=== PATIENT | female | born 1955 | race Caucasian/White ===

== ENCOUNTER 2018-03-16 06:05 | Inpatient (IN) | payer OTHER ==
[~2018-03-16] VITALS: Ht 162.6 cm; Wt 65.3 kg
--- NOTE | ~2018-03-16 | EKG ---
[place] [address] [facility] [place] [address] ELECTROCARDIOGRAM REPORT Name: DENISE PULIDO [id number] Admission: 03/16/18 Attend Phys: Discharge: Date of : 59 Report #: [id number] THIS REPORT FOR: //name// [facility] ED Test Date: 2018-03-16 Test Time: 06:50:13 Pat Name: DENISE PULIDO Department: Room: Gender: F [employer]: : 1955 Requested By: Everett Patel Order Number: [id number] MD: Bryce Smith Measurements Intervals [place] Rate: 93 P: 70 GA: 127 QRS: 52 QRSD: 92 T: 52 QT: 358 QTc: 446 Interpretive Statements Sinus rhythm Nonspecific ST segment abnormality No previous ECG available for comparison Electronically Signed On 03-16-2018 8:51:11 CDT by Bryce Smith [email or web address] <ELECTRONICALLY SIGNED> By: Bryce Smith MD, [facility] 03/16/18 0851 0650 0650 Bryce Smith MD, FACC /EPI
--- NOTE | ~2018-03-16 | PATH ---
[facility] [place] [address] PATHOLOGY RPT PROCEDURE Name: MARIA DEL ROSARIO PULIDO Room #: 221-P [facility] IN .R.#: [id number] Admission: 03/16/18 Date of : 59 Discharge: 03/20/18 Report #: [id number] Path Case #: [id number] [facility] Accession Number: [id number] . 01 Material submitted: . LIVER . 01 Clinical history: . Abdominal pain, liver mass . 02 Diagnosis: Liver biopsy: - Moderately poorly differentiated adenocarcinoma. See comment. (SHA:alexia; 03/22/2018) QMS/03/22/2018 . 02 Comment: This case was also reviewed by Dr. Jammie Gustafson. This case was also discussed with Dr. Dustin Gregg and Dr. Maddie Ramirez on 03/22/2018 at 2:00 p.m. . Immunoperoxidase stains reveal TTF-1 positive, CK7 positive, CK20 positive, CK19 positive, and AE1/AE3 positive. . Immunoperoxidase stains for mammaglobin, hepatocyte, DC, synaptophysin, chromogranin, p40, and ER are negative. The mucin stain is weakly positive. Based on the immunoglobulin stain, the primaries are lung and pancreaticobiliary . (SHA:alexia; 03/22/2018) . 02 Electronically signed: . Francis Lunsford MD, Pathologist NPI- [id number] . 01 Gross description: . The specimen is received in formalin, labeled "Maria Del Rosario Pulido, liver" and consists of 2 delicate needle cores of navarro-brown tissue measuring 2.0 cm and 1.7 cm in length and 0.1 cm each in diameter. They are entirely submitted in A1. (SDY; 03/18/2018) SYU/SYU . 02 Pathologist provided ICD-10: C22.9 . 02 CPT . [address] [address] PATHOLOGY RPT PROCEDURE Name: MARIA DEL ROSARIO PULIDO Room #: 221-P [facility] IN [facility].#: [id number] Admission: 03/16/18 Date of : 59 Discharge: 03/20/18 Report #: [id number] Path Case #: [id number] Specimen Comment: A courtesy copy of this report has been sent to Specimen Comment: [phone]. Specimen Comment: Report sent to Performed at: [address], [place], [place] [id number] MD Benson Landry MD Phone: [phone] Performed at: [address] [id number] MD Daly Wilson MD Phone: [phone]
--- NOTE | ~2018-03-16 | HC ---
[facility] [place] [address] CONSULTATION Name: DENISE PULIDO Room #: 221-P [facility] IN M.R.#: [id number] Admission: 03/16/18 Attend Phys: Dustin Gregg MD Discharge: Date of : 59 Report #: [id number] THIS REPORT FOR: //name// CC: DONNIE physician/PCP Dustin Gregg DATE OF SERVICE: 03/17/2018 REASON FOR CONSULTATION: Leukocytosis. HISTORY OF PRESENT ILLNESS: The patient is a 62-year-old, underlying COPD, active smoker, who presents with a 4-day history of right-sided abdominal pain, then developing nausea, vomiting and inability to keep any food or liquids down. Denies any fever, chills or sweats. Pain is very sharp involving the right upper lateral abdomen and side. Pain medication does help some. Pain is worse when she moves. It does not change after eating or with defecation. She has never had this type of discomfort before. Reports no trauma. After admission through the Emergency Room, she was found on imaging studies to have multiple lesions in her liver as well as a large adrenal mass. This is being further evaluated. She is also noted to have a white count of 23,000. REVIEW OF SYSTEMS: GENERAL: Denies any headache, change in mental status, seizure disorder, unilateral weakness. CONSTITUTIONAL: As noted above with no weight loss. LYMPH: Negative. HEMATOLOGIC: Negative. ENDOCRINE: Negative. PULMONARY: COPD, chronic smoker. No significant cough or sputum production. No hemoptysis. No pleuritic chest pain. Does have some dyspnea on exertion. CARDIOVASCULAR: Negative. GASTROINTESTINAL: As above. GENITOURINARY: Negative with no hematuria, back or flank pain. No vaginal discharge. JOINTS: Negative. SKIN: Negative. HEMATOLOGIC: Negative. ALLERGY: Negative. ALLERGIES: None known. MEDICATIONS: No medications prior to her admission. PAST MEDICAL HISTORY: Herniated disk to her neck, COPD, right pneumothorax. [facility] [address] [place] [address] CONSULTATION Name: DENISE PULIDO Room #: 221-P [facility] IN [facility]#: [id number] Admission: 03/16/18 Attend Phys: Dustin Gregg MD Discharge: Date of : 59 Report #: [id number] FAMILY HISTORY: Noncontributory. SOCIAL HISTORY: She is a smoker of cigarettes. No significant alcohol intake. No tuberculosis exposure. No HIV risk factors. She has 2 grown children. Currently unemployed. PHYSICAL EXAMINATION: VITAL SIGNS: Afebrile and hemodynamically stable. GENERAL: She is alert and cooperative and pleasant, in no acute distress, lying in bed, appeared her stated age. HEENT: Grossly hearing was normal. Dentition in fair repair. No oral lesions or mucositis. Eyes without conjunctival injection or scleral icterus. NECK: Supple. No thyromegaly, mass, JVD. No peripheral adenopathy palpable. SKIN: Without lesion. LUNGS: Decreased breath sounds bilaterally. HEART: Regular, without murmur, gallop or rub. Chest wall unremarkable. ABDOMEN: Mild distention with tenderness in the right upper quadrant. There was fullness in this region. Liver edge was palpable on deep inspiration. No CVA tenderness. No other appreciable masses. GENITAL AND RECTAL: Not performed. EXTREMITIES: Without edema or cyanosis. NEUROLOGIC: Cranial nerves intact. Strength in upper and lower extremities normal. Deep tendon reflexes normal, sensation normal in upper and lower extremities. Mood normal. LABORATORY STUDIES: Creatinine 0.8. Sodium 133, potassium 3.6, bicarbonate 25, lipase 43, bilirubin 0.7, alkaline phosphatase 311, ALT 29, AST 183, lactate 2.3. Hemoglobin 11, WBC 23.5, platelet count 668,000, differential unremarkable. Urinalysis unremarkable with no hematuria. Chest x-ray is clear. CT scan of the abdomen showed multiple hepatic masses along with a large adrenal mass. She also had thickening along the right ureter and a mass in the bladder. IMPRESSION: A 62-year-old with: 1. Leukocytosis. She has wildly metastatic lesions involving the liver and the adrenal gland. Also, has a lesion in the right ureter and bladder. Question now is whether this is all related. I do suspect this process is what is stimulating her leukocytosis. At this point, it does appear most likely malignancy. This, however, will need to be further delineated after biopsy. Other granulomatous process could present in this fashion. The patient has had no fever, chills or sweats to support this, however. 2. Tobacco use. 3. Anemia. 4. Thrombocytosis. 5. Mild hepatitis. [address] [address] CONSULTATION Name: DENISE PULIDO Room #: 221-P [facility] IN M.R.#: [id number] Admission: 03/16/18 Attend Phys: Dustin Gregg MD Discharge: Date of : 59 Report #: [id number] RECOMMENDATION: We will hold antibiotics at this point in time. We will check HIV status, TB screen, histoplasma antibody and await tissue cultures along with pathology report from needle biopsy of the liver lesion. <ELECTRONICALLY SIGNED> By: Jeremías Washington MD 03/18/18 0916 1139 2046 Jeremías Washington MD /nt
--- NOTE | ~2018-03-16 | HC ---
[facility] [place] [address] CONSULTATION Name: DENISE PULIDO Room #: 428-P [facility] IN M.R.#: [id number] Admission: 03/16/18 Attend Phys: Dustin Gregg MD Discharge: Date of : 59 Report #: [id number] THIS REPORT FOR: //name// CC: DONNIE physician/PCP Dustin Gregg DATE OF SERVICE: 03/16/2018 HISTORY OF PRESENT ILLNESS: This patient is seen in consultation regarding a CT scan performed in the Emergency Room showing masses within the liver and enlargement of the right adrenal gland. She presented to the ER with complaints of nausea and vomiting for several days along with right upper quadrant pain. She has no known prior history of malignancy. She has not had any recent testing done nor seen physicians for approximately the last 6 years as she has been uninsured. She states that earlier colonoscopy and mammography 6 years ago were negative. She is an ongoing cigarette smoker, but denies any recent increased cough or hemoptysis. She has chronic GERD symptoms. She denies any recent change in bowel or bladder habits. PAST MEDICAL HISTORY: Significant for herniated disks. MEDICATIONS: As listed on the MFR. ALLERGIES: None known. SOCIAL HISTORY: Significant for one half pack of cigarettes per day x 40 years. She denies illicit drug use. FAMILY HISTORY: Noncontributory. REVIEW OF SYSTEMS: Negative except in the history of the present illness. PHYSICAL EXAMINATION: GENERAL: Shows her to be alert. Her boyfriend and son are present. She appears older than her stated age and smells of tobacco/cigarette smoke. HEENT: Normocephalic. Her mouth is clear. NECK: Supple. CHEST: Clear. CARDIOVASCULAR: Normal S1, S2. ABDOMEN: Shows liver to be 4 fingerbreadths below the right costal margin. There is no evidence of ascites or other masses. EXTREMITIES: No clubbing, cyanosis, edema. NEUROLOGIC: No focal localized signs. PSYCHIATRIC: Not agitated or confused. [facility] [address] [place] [address] CONSULTATION Name: DENISE PULIDO Room #: 428-[facility] IN ..#: [id number] Admission: 03/16/18 Attend Phys: Dustin Gregg MD Discharge: Date of : 59 Report #: [id number] LYMPHATICS: No palpable supraclavicular or axillary lymphadenopathy. LABORATORY DATA: Reviewed and showed leukocytosis along with liver function abnormalities. CT scan shows masses within both lobes of her liver and a 3 x 6 x 7 cm right adrenal mass. ASSESSMENT: Suspected stage 4 malignancy. PLAN: The patient needs to undergo a biopsy to make a tissue diagnosis. We reviewed and discussed and she understands and agrees and is anxious to proceed as quickly as possible. I would recommend that Radiology see her for an IR directed needle biopsy of either the adrenal mass or one of the liver metastases. Assuming she is stable, she can be discharged following the procedure while we wait for her pathology results to be known. Social work needs to see her also, so she can apply for Medicaid benefits. Thanks for allowing me to see her with you in consultation and asking me to participate in her care. By: [id number] Maddie Polanco MD /nt
[~2018-03-16 06:05] MED LIST: ATIVAN1 MG PO; NOHOMEMEDICATIONS
[2018-03-16 06:06] VITALS: BP 145/55
[2018-03-16 06:49] LABS: HEMATOCRIT 33.6 % (37.0-47.0); HEMOGLOBIN 11.1 gm/dL (12.0-15.0); MCH 26.3 pg (26.0-34.0); MCHC 32.9 g/dL (28.0-37.0); MCV 79.9 fL (80.0-100.0); PLATELET COUNT 668 thou/uL (150-400); RBC 4.21 mil/uL (4.20-5.00); RDW 14.3 % (10.5-14.5); WBC 23.5 thou/uL (4.0-11.0)
[2018-03-16 06:58] LABS: CALCIUM 8.9 mg/dL (8.5-10.1); CREATININE 0.8 mg/dL (0.6-1.0); POTASSIUM 3.6 mmol/L (3.5-5.1)
[2018-03-16 07:04] LABS: ALBUMIN 2.7 g/dL (3.4-5.0); TOTAL BILIRUBIN 0.7 mg/dL (<0.1-1.0)
[2018-03-16 07:54] LABS: ABSOLUTE NEUTROPHILS 19.3 thou/uL (1.4-8.2)
[2018-03-16 07:55] LABS: ANISOCYTOSIS 1+
[2018-03-16 08:57] LABS: URINE BILIRUBIN NEGATIVE (Negative); URINE BLOOD NEGATIVE (Negative); URINE CLARITY CLEAR; URINE COLOR YELLOW; URINE GLUCOSE-RANDOM* NEGATIVE (Negative); URINE KETONES NEGATIVE (Negative); URINE LEUKOCYTES-REFLEX NEGATIVE (Negative); URINE NITRITE-REFLEX NEGATIVE (Negative); URINE PROTEIN (DIPSTICK) NEGATIVE (Negative); URINE UROBILINOGEN 0.2 E.U./dl (0.2-1.0)
[2018-03-16 10:20] LABS: INR 1.2; PROTIME 11.9 Seconds (9.3-11.4)
[2018-03-16 11:14] VITALS: BP 145/55
[2018-03-16 13:25] VITALS: BP 143/78
[2018-03-16 13:30] VITALS: BP 135/49
[2018-03-16 14:16] LABS: TSH 1.989 uIU/mL (0.358-3.740)
[2018-03-16 19:55] VITALS: BP 142/55
[2018-03-17] VITALS (7 sets, daily range): BP systolic 128–165; BP diastolic 50–81
[2018-03-17 05:57] LABS: HEMATOCRIT 30.8 % (37.0-47.0); HEMOGLOBIN 9.8 gm/dL (12.0-15.0); MCH 25.5 pg (26.0-34.0); MCHC 31.7 g/dL (28.0-37.0); MCV 80.4 fL (80.0-100.0); RBC 3.83 mil/uL (4.20-5.00); RDW 14.2 % (10.5-14.5); WBC 23.8 thou/uL (4.0-11.0)
[2018-03-17 06:06] LABS: CALCIUM 8.1 mg/dL (8.5-10.1); CREATININE 0.8 mg/dL (0.6-1.0); MAGNESIUM 1.7 mg/dL (1.8-2.4); POTASSIUM 3.7 mmol/L (3.5-5.1)
[2018-03-17 13:46] LABS: APTT 33.8 Seconds (24.5-32.8); INR 1.3; PROTIME 13.4 Seconds (9.3-11.4)
[2018-03-17 23:06] LABS: HIV ANTIBODY Non Reactive (Non Reactive)
[2018-03-18 05:20] VITALS: BP 162/61
[2018-03-18 07:26] LABS: HEMATOCRIT 28.2 % (37.0-47.0); HEMOGLOBIN 9.3 gm/dL (12.0-15.0); MCH 26.1 pg (26.0-34.0); MCHC 32.9 g/dL (28.0-37.0); MCV 79.3 fL (80.0-100.0); RBC 3.56 mil/uL (4.20-5.00); RDW 14.2 % (10.5-14.5); WBC 23.5 thou/uL (4.0-11.0)
[2018-03-18 07:37] LABS: CALCIUM 7.6 mg/dL (8.5-10.1); CREATININE 0.7 mg/dL (0.6-1.0); MAGNESIUM 1.6 mg/dL (1.8-2.4); POTASSIUM 3.4 mmol/L (3.5-5.1)
[2018-03-18 07:54] VITALS: BP 140/68
[2018-03-18 17:42] VITALS: BP 140/68
[2018-03-18 20:22] VITALS: BP 144/73
[2018-03-19 08:15] VITALS: BP 147/65
[2018-03-19 09:47] LABS: HEMATOCRIT 29.1 % (37.0-47.0); HEMOGLOBIN 9.6 gm/dL (12.0-15.0); MCH 26.4 pg (26.0-34.0); MCV 79.8 fL (80.0-100.0); RBC 3.64 mil/uL (4.20-5.00); RDW 14.4 % (10.5-14.5); WBC 19.5 thou/uL (4.0-11.0)
[2018-03-19 10:29] LABS: CALCIUM 8.1 mg/dL (8.5-10.1); CREATININE 0.6 mg/dL (0.6-1.0); MAGNESIUM 1.8 mg/dL (1.8-2.4)
[2018-03-19 10:42] LABS: POTASSIUM 2.9 mmol/L (3.5-5.1)
[2018-03-19 14:26] LABS: CALCIUM 7.8 mg/dL (8.5-10.1); CREATININE 0.7 mg/dL (0.6-1.0); POTASSIUM 3.4 mmol/L (3.5-5.1)
[2018-03-19 19:46] VITALS: BP 156/82
[2018-03-20 08:00] VITALS: BP 138/64
[2018-03-20 09:30] LABS: HEMATOCRIT 28.5 % (37.0-47.0); HEMOGLOBIN 9.4 gm/dL (12.0-15.0); MCH 26.5 pg (26.0-34.0); MCHC 33.1 g/dL (28.0-37.0); RBC 3.56 mil/uL (4.20-5.00); RDW 14.3 % (10.5-14.5); WBC 18.4 thou/uL (4.0-11.0)
[2018-03-20 09:39] LABS: CREATININE 0.8 mg/dL (0.6-1.0); MAGNESIUM 1.9 mg/dL (1.8-2.4); POTASSIUM 4.3 mmol/L (3.5-5.1)
[2018-03-20] MEDS ORDERED: HYDROCODON-ACE1 EAC7 PO (13:08)
[2018-03-20] MEDS ORDERED: OXYCONTIN10 M1 PO (13:08)
[2018-03-20 14:11] VITALS: BP 140/68
[2018-03-21 21:10] LABS: HISTOPLASMA MYCELIAL-ID Positive (Negative)
[2018-03-22 23:10] LABS: HISTOPLASMA MYCELIAL-CF Negative (Neg:<1:2)
== END 2018-03-20 15:07 | disposition home or self-care (01) | DRG 442 ==
LOC: ER 06:05 → EROBS 10:04 → 4E 10:04 → SICU 03-17 18:47
PROVIDERS: Emergency Medicine; Internal Medicine; Radiology Vascular & Interventional Radiology; Specialist
PROC: 0FB23ZX Excision of Left Lobe Liver, Percutaneous Approach, Diagnostic (ICD-10-PCS; principal; 2018-03-17)
DX: K75.9 Inflammatory liver disease, unspecified (principal); R65.10 Systemic inflammatory response syndrome (SIRS) of non-infectious origin without acute organ dysfunction; E87.2 Acidosis; R16.0 Hepatomegaly, not elsewhere classified; J44.9 Chronic obstructive pulmonary disease, unspecified; D64.9 Anemia, unspecified; D47.3 Essential (hemorrhagic) thrombocythemia; E27.9 Disorder of adrenal gland, unspecified; E87.6 Hypokalemia; F17.210 Nicotine dependence, cigarettes, uncomplicated; Z79.899 Other long term (current) drug therapy
CPT/HCPCS: 10084; 15000

== ENCOUNTER 2018-03-21 02:55 | Inpatient (IN) | payer OTHER ==
[2018-03-21] VITALS (8 sets, daily range): BP systolic 114–139; BP diastolic 36–63
[~2018-03-21] VITALS: Ht 162.6 cm; Wt 64.9 kg
--- NOTE | ~2018-03-21 | 2DMMODE ---
[facility] [address] [place] [address] 2 D/M-MODE ECHOCARDIOGRAM Name: ASHOKDENISE Room #: 214-P [facility] IN [facility]#: [id number] Admission: 03/21/18 Attend Phys: Dustin Gregg, Discharge: Date of : 59 Date of Service: 03/21/18 1247 Report #: [id number] THIS REPORT FOR: //name// APPROVED REPORT Study performed: 03/21/2018 11:09:57 EXAM: Comprehensive 2D, Doppler, and color-flow Echocardiogram Patient Location: In-Patient Room #: 214 Status: routine BSA: 1.69 HR: 70 bpm BP: 130/63 mmHg Other Information Study Quality: Adequate Indications COPD Elevated Troponin SOA 2D Dimensions RVDd: 31.72 mm IVSd: 10.94 (7-11mm) LVOT Diam: 19.12 (18-24mm) LVDd: 41.90 mm PWd: 10.47 (7-11mm) Ascending Ao: 25.83 (22-36mm) LVDs: 26.05 (25-40mm) Aortic Root: 27.02 mm IVC: 16.00 mm Volumes Left Atrial Volume (Systole) Single Plane 4CH: 37.63 mL Single Plane 2CH: 41.30 mL LA ESV Index: 26.00 mL/m2 Aortic Valve AoV Peak Jaun.: 1.33 m/s AO Peak Gr.: 7.03 mmHg LVOT Max P.56 mmHg LVOT Max V: 1.07 m/s HARRIS Vmax: 2.31 cm2 Mitral Valve E/A Ratio: 1.1 MV Decel. Time: 245.94 ms [facility] [place] [place] [place] [address] 2 D/M-MODE ECHOCARDIOGRAM Name: ASHOKDENISE Room #: 214-P [facility].#: [id number] Admission: 03/21/18 Attend Phys: Dustin Gregg, Discharge: Date of : 59 Date of Service: 03/21/18 1247 Report #: [id number] MV E Max Jaun.: 0.92 m/s MV A Jaun.: 0.86 m/s MV PHT: 71.32 ms IVRT: 93.43 ms Pulmonary Valve PV Peak Jaun.: 1.06 m/s PV Peak Gr.: 4.53 mmHg Pulmonary Vein P Vein S: 0.81 m/s P Vein A: 0.17 m/s P Vein D: 0.73 m/s P Vein A Dur.: 131.5 msec P Vein S/D Ratio: 1.11 Tricuspid Valve TR Peak Jaun.: 3.30 m/s RAP Estimate: 5.00 mmHg TR Peak Gr.: 43.66 mmHg PA Pressure: 49.00 mmHg Left Ventricle The left ventricle is normal size. There is normal left ventricular wall thickness. The left ventricular systolic function is normal. The left ventricular ejection fraction is within the normal range. LVEF is 60-65%. Moderate diastolic dysfunction is present (pseudonormal filling). Right Ventricle The right ventricle is normal size. The right ventricular systolic function is normal. Atria The left atrium size is normal. The right atrium size is normal. Aortic Valve The aortic valve is normal in structure. No aortic regurgitation is present. There is no aortic valvular stenosis. Mitral Valve The mitral valve is normal in structure. Trace mitral regurgitation. No evidence of mitral valve stenosis. Tricuspid Valve The tricuspid valve is normal in structure. Mild tricuspid regurgitation. PAP is estimated at 49 mmHg. Pulmonic Valve [address] [address] 2 D/M-MODE ECHOCARDIOGRAM Name: DENISE PULIDO Room #: 214-P [facility] IN [facility]#: [id number] Admission: 03/21/18 Attend Phys: Dustin Gregg, Discharge: Date of : 59 Date of Service: 03/21/18 1247 Report #: [id number] Pulmonic valve is not well visualized. There is no pulmonic valvular regurgitation. Great Vessels The aortic root is normal in size. IVC is normal in size and collapses >50% with inspiration. Pericardium There is no pericardial effusion. <Conclusion> The left ventricle is normal size. LVEF is 60-65%. The aortic valve is normal in structure. The mitral valve is normal in structure. Trace mitral regurgitation. The tricuspid valve is normal in structure. Mild tricuspid regurgitation. PAP is estimated at 49 mmHg. Pulmonic valve is not well visualized. There is no pericardial effusion. <ELECTRONICALLY SIGNED> By: Nate Bidr MD 03/21/18 1247 1247 124 Nate Bird MD /INF
--- NOTE | ~2018-03-21 | EKG ---
[address] [address] ELECTROCARDIOGRAM REPORT Name: DENISE PULIDO Room #: 214-P [facility] IN .R.#: [id number] Admission: 03/21/18 Attend Phys: Dustin Gregg MD Discharge: Date of : 59 Report #: [id number] THIS REPORT FOR: //name// [facility] ED Test Date: 2018-03-21 Test Time: 03:09:13 Pat Name: DENISE PULIDO Department: Room: 214 Gender: F Heel Layer: LASHANDA : 1955 Requested By: Everett Patel Order Number: [id number] MD: Bryce Smith Measurements Intervals [place] Rate: 101 P: 90 MN: 120 QRS: 57 QRSD: 99 T: 31 QT: 342 QTc: 444 Interpretive Statements Sinus tachycardia Nonspecific ST segment abnormality Compared to ECG 03/16/2018 06:50:13 No significant change was found Electronically Signed On 03-21-2018 8:10:45 BONE PROCESS OPERATOR by Bryce Smith [email or web address] <ELECTRONICALLY SIGNED> By: Bryce Smith MD, [facility] 03/21/18 0810 0309 0309 Bryce Smith MD, [facility] /EPI
[~2018-03-21 02:55] MED LIST changes: +HYDROCODON-ACE1 EAC7 PO; +OXYCONTIN10 M1 PO
[2018-03-21 03:30] LABS: CALCIUM 7.8 mg/dL (8.5-10.1); CREATININE 0.8 mg/dL (0.6-1.0); HEMATOCRIT 29.6 % (37.0-47.0); HEMOGLOBIN 9.7 gm/dL (12.0-15.0); MCH 25.9 pg (26.0-34.0); MCHC 32.6 g/dL (28.0-37.0); MCV 79.3 fL (80.0-100.0); POTASSIUM 4.3 mmol/L (3.5-5.1); RBC 3.73 mil/uL (4.20-5.00); RDW 14.5 % (10.5-14.5); WBC 23.3 thou/uL (4.0-11.0)
[2018-03-21 03:33] LABS: PLATELET COUNT 693 thou/uL (150-400)
[2018-03-21 03:39] LABS: TROPONIN-I 0.23 ng/mL (<0.06)
[2018-03-21 04:04] LABS: ABSOLUTE NEUTROPHILS 19.3 thou/uL (1.4-8.2); PLATELET ESTIMATE INCREASED; POLYCHROMASIA 1+
[2018-03-21 09:04] LABS: CHOLESTEROL 100 mg/dL (<200); HDL CHOLESTEROL 11 mg/dL (>40); LDL CHOLESTEROL 72 mg/dL (<100); TC:HDL 9.1 Ratio (Not establshd); TRIGLYCERIDE 88 mg/dL (<150); VLDL 18 mg/dL (<40)
[2018-03-22] VITALS: BP 144/69
[2018-03-22 04:00] VITALS: BP 136/50
[2018-03-22 04:44] LABS: HEMATOCRIT 28.8 % (37.0-47.0); HEMOGLOBIN 9.4 gm/dL (12.0-15.0); MCH 26.5 pg (26.0-34.0); MCHC 32.8 g/dL (28.0-37.0); MCV 80.8 fL (80.0-100.0); RBC 3.56 mil/uL (4.20-5.00); RDW 14.7 % (10.5-14.5); WBC 20.2 thou/uL (4.0-11.0)
[2018-03-22 04:56] LABS: CALCIUM 7.9 mg/dL (8.5-10.1); CREATININE 0.8 mg/dL (0.6-1.0); MAGNESIUM 1.8 mg/dL (1.8-2.4); TROPONIN-I 0.11 ng/mL (<0.06)
[2018-03-22 08:31] VITALS: BP 128/65
[2018-03-22 09:59] VITALS: BP 128/65
[2018-03-22] MEDS ORDERED: MUCINEX600 MG PO (12:30)
[2018-03-22] MEDS ORDERED: IPRAT-ALBUT 0.5-3 ML INH (12:30)
[2018-03-22] MEDS ORDERED: NEBULIZER MISCELL (12:30)
[2018-03-22 13:06] VITALS: BP 139/67
== END 2018-03-22 15:48 | disposition home or self-care (01) | DRG 192 ==
LOC: ER 02:55 → 2N 05:52 → EROBS 05:52 → 2N 06:29
PROVIDERS: Emergency Medicine; Internal Medicine; Nurse Practitioner Gerontology
DX: J44.1 Chronic obstructive pulmonary disease with (acute) exacerbation (principal); K76.9 Liver disease, unspecified; R79.1 Abnormal coagulation profile; G89.29 Other chronic pain; F17.210 Nicotine dependence, cigarettes, uncomplicated; Z71.6 Tobacco abuse counseling; Z82.49 Family history of ischemic heart disease and other diseases of the circulatory system
CPT/HCPCS: 10081